=== PATIENT | male | born 1990 | race Caucasian/White ===

== ENCOUNTER 2024-06-23 14:29 | Emergency (ER) | payer OTHER ==
[~2024-06-23] VITALS: Ht 177.8 cm; Wt 82.6 kg
[2024-06-23] MEDS: FAMOTIDINE/PF INJ 20 MG/2 ML VIAL IV ONE (15:30)
[2024-06-23] MEDS: methylPREDNISolone SOD SUCC 125 MG/2ML VIAL IV ONE (15:30)
[2024-06-23] MEDS: IV NS 0.9% 1,000 ML BAG IV ONE (15:30)
[2024-06-23] MEDS: EPINEPHRINE (1:1000) 1 MG/ML AMPUL SUBCUT ONE (15:30)
[2024-06-23] MEDS ORDERED: FAMOTIDINE/PF INJ 20 MG/2 ML VIAL IV ONE (15:47)
[2024-06-23] MEDS ORDERED: EPINEPHRINE (1:1000) 1 MG/ML AMPUL ONE (15:47)
[2024-06-23] MEDS ORDERED: methylPREDNISolone SOD SUCC 125 MG/2ML VIAL ONE (15:47)
[2024-06-23] MEDS ORDERED: EPIN0.3P3 IM (16:40)
[2024-06-23] MEDS ORDERED: PRED20TA PO (16:40)
[2024-06-23 16:53] VITALS: BP 119/69; TEMP 97.9; O2SAT 99
[2024-06-24] MEDS ORDERED: EPIN0.3P3 IM (11:53)
== END 2024-06-23 16:54 | disposition home or self-care (01) ==
LOC: ER 14:42
DX: T78.09XA Anaphylactic reaction due to other food products, initial encounter (principal); J45.909 Unspecified asthma, uncomplicated; R11.0 Nausea; R20.2 Paresthesia of skin; R42 Dizziness and giddiness; Z79.52 Long term (current) use of systemic steroids; Y84.8 Other medical procedures as the cause of abnormal reaction of the patient, or of later complication, without mention of misadventure at the time of the procedure; Y82.8 Other medical devices associated with adverse incidents
CPT/HCPCS: 99284; 96374; 96361; 96375; 96372; J2919; J0171; J1308; J7030